=== PATIENT | male | born 2000 | race Native Hawaiian/Other Pacific Islander ===

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

== ENCOUNTER → 2023-07-14 | Outpatient (REF) | LOC: M PLAIMG 08:45 | PROVIDERS: ATTEND Internal Medicine | DX: R52 Pain, unspecified (principal) ==